=== PATIENT | male | born 1995 | race Two or more races ===

== ENCOUNTER 2020-06-25 11:58 | Emergency (ER) | payer OTHER | END 2020-06-25 13:08 | disposition home or self-care (01) | LOC: FER 11:58 | DX: S71.112A Laceration without foreign body, left thigh, initial encounter (principal); W26.8XXA Contact with other sharp object(s), not elsewhere classified, initial encounter; Z23 Encounter for immunization | CPT/HCPCS: 90471; 90715 ==